=== PATIENT | male | born 1990 | race Caucasian/White ===

== ENCOUNTER 2025-03-28 13:22 | Emergency (ER) | payer SELFPAY ==
[~2025-03-28] VITALS: Ht 175.3 cm; Wt 75.0 kg
[2025-03-28 13:25] VITALS: BP 159/95; PULSE 118; RESP 16; TEMP 37; O2SAT 98; O2SAT 99
== END 2025-03-28 14:52 | disposition left against medical advice (07) ==
LOC: ER 13:22
DX: R07.9 Chest pain, unspecified (principal); Z53.21 Procedure and treatment not carried out due to patient leaving prior to being seen by health care provider
CPT/HCPCS: 93005; 99281